=== PATIENT | female | born 2000 | race Caucasian/White ===

== ENCOUNTER → 2020-12-14 | Outpatient (CLI) | payer OTHER ==
[~2020-12-14] MED LIST: AMOCLA500 PO; CEPH250A PO; CEPH500 PO; TRIA80TC TOP; Verotin-Gr Cap1 EACH PO; Zithromax250 MG PO; Zofran4 MG PO
== END | disposition home or self-care (01) ==
LOC: LAB 10:23 → LAB SHORT 10:23
DX: O09.92 Supervision of high risk pregnancy, unspecified, second trimester (principal)
CPT/HCPCS: 87081; 87150

== ENCOUNTER → 2020-12-31 | Outpatient (CLI) | payer OTHER ==
[2021-01-01 09:32] LABS: Candida species (DNA Probe) Negative (NEGATIVE); G. vaginalis (DNA Probe) Positive (NEGATIVE); T. vaginalis (DNA Probe) Negative (NEGATIVE)
== END ==
LOC: LAB SHORT 17:24 → LAB 17:24
PROVIDERS: Advanced Practice Midwife
DX: N76.0 Acute vaginitis (principal)
CPT/HCPCS: 87480; 87510; 87660

== ENCOUNTER 2021-01-12 05:59 | Inpatient (IN) | payer OTHER ==
[~2021-01-12] VITALS: Ht 160 cm; Wt 62.7 kg
[2021-01-12 07:17] LABS: SARS-Cov-2 (COVID-19) PCR, MMC NEGATIVE (NEGATIVE)
[2021-01-12 08:13] LABS: BASOPHILS PERCENT AUTO 1 % (0-2); EOSINOPHILS ABSOLUTE AUTO 0.14 K/mm3 (0.00-0.68); EOSINOPHILS PERCENT AUTO 1 % (0-6); Hematocrit 32.9 % (33.0-51.0); Hemoglobin 11.1 g/dL (11.5-16.0); IMMATURE GRAN PERCENT AUTO 3 % (0-1); LYMPHOCYTES ABSOLUTE AUTO 2.93 K/mm3 (0.84-5.20); LYMPHOCYTES PERCENT AUTO 20 % (21-46); MONOCYTES ABSOLUTE AUTO 1.04 K/mm3 (0.16-1.47); MONOCYTES PERCENT AUTO 7 % (4-13); Mean Corpuscular HGB 30.2 pg (26.0-34.0); Mean Corpuscular HGB Conc 33.7 g/dL (31.5-36.5); Mean Corpuscular Volume 90 fL (80-100); Mean Platelet Volume 10.4 fL (9.1-12.4); NEUTROPHILS ABSOLUTE AUTO 10.09 K/mm3 (1.96-9.15); NEUTROPHILS PERCENT AUTO 69 % (41-73); Platelet Count 268 K/mm3 (150-400); RDW Coefficient Variation 12.8 % (11.7-14.2); RDW Standard Deviation 41.8 fL (35.1-46.3); Red Blood Cell Count 3.67 M/mm3 (3.80-5.20)
--- NOTE | 2021-01-12 09:18 | NUR ---
MULTIPLE IV ATTEMPTS WITH 18G IV, UNABLE TO THREAD R/T PATIENTS SEVERE NEEDLE PHOBIA, 20 G IV WAS USED ON 4TH POKE WITH SUCCESS.
--- NOTE | 2021-01-13 02:24 | NUR ---
0000-THIS COMPUTATIONAL SCIENCES PROFESSOR ENTERED PT ROOM TO FIND PT SLEEPING IN BED WITH NB. MOTHER EDUCATED ABOUT SAFE SLEEPING PRACTICES, THAT NB MAY NOT SLEEP IN BED WITH MOTHER AND NEEDS TO BE PLACED ON HER BACK TO SLEEP IN THE CRIB. MOTHER'S RESPONSE TO EDUCATION WAS "WELL THEN I GUESS I WON'T SLEEP UNTIL I GO HOME THEN."
--- NOTE | 2021-01-13 06:10 | NUR ---
TOOK OVER CARE OF PT DURING SHIFT. FIRST TIME ENTERING THE ROOM PT WAS SITTING UP IN BED WITH BABY LAYING NEXT TO HER IN BED. LET PT KNONW OF NO COSLEEPING POLICY IN HOSPITAL. PT STATED SHE WAS NOT GOING TO BE SLEEPING TONIGHT. LATER IN SHIFT WHEN DOING VITALS PT WAS LYING NEXT TO BABY IN BED, REMINDER HER OF POLICY, OFFERED TO TAKE BABY TO NURSE STATION OR THE IMPORTANCE OF HER AND FOB TRAIDING OFF HOLDING BABY SO THER OTHER COULD SLEEP. AT 6:00AM CHECKED ON PT AND SHE WAS ALSEEP IN BED WITH BABY WITH COVERS ON. WOKE PT UP AND REMINDER HER OF POLICY. PT REMOVED COVERS AND STATED THAT SHE WOULD NOT SLEEP IF SHE WAS COLD AND SHE WOULD BE COLD WITHOUT COVERS. OFFERED TO TAKE BABY TO NURSES STATION AND SHE DECLINED. PT STATED FOB WENT HOME TO GET SOME SLEEP HE WORKS [employer].
--- NOTE | 2021-01-13 16:15 | NUR ---
PT D/C HOME WITH NB, D/C INSTRUCTIONS SIGNED AND PT RETURNING MONDAY FOR PPFU.
== END 2021-01-13 16:00 | disposition home or self-care (01) | DRG 806 ==
LOC: OBS 05:59 → BC 06:03 → OBS 06:04 → BC 06:05
PROVIDERS: ADMIT Advanced Practice Midwife
PROC: 10E0XZZ Delivery of Products of Conception, External Approach (ICD-10-PCS; principal; 2021-01-12)
PROC: 10907ZC Drainage of Amniotic Fluid, Therapeutic from Products of Conception, Via Natural or Artificial Opening (ICD-10-PCS; 2021-01-12)
DX: O99.42 Diseases of the circulatory system complicating childbirth (principal); O99.324 Drug use complicating childbirth; Z37.0 Single live birth; F12.90 Cannabis use, unspecified, uncomplicated; Z20.822 Contact with and (suspected) exposure to COVID-19; Z3A.39 39 weeks gestation of pregnancy; I34.0 Nonrheumatic mitral (valve) insufficiency; O43.123 Velamentous insertion of umbilical cord, third trimester; O99.334 Smoking (tobacco) complicating childbirth; F17.200 Nicotine dependence, unspecified, uncomplicated; M41.9 Scoliosis, unspecified; O99.891 Other specified diseases and conditions complicating pregnancy
CPT/HCPCS: 36415; 85025; 86850; 86900; 86901; A9270; J1885; J2590; J3010; J7030; J7120; U0004

== ENCOUNTER → 2021-08-16 | Outpatient (CLI) | payer OTHER ==
[2021-08-17 10:25] LABS: Candida species (DNA Probe) Negative (NEGATIVE); G. vaginalis (DNA Probe) Positive (NEGATIVE); T. vaginalis (DNA Probe) Negative (NEGATIVE)
== END | disposition home or self-care (01) ==
LOC: LAB SHORT 16:09 → LAB 16:09
PROVIDERS: Advanced Practice Midwife
DX: N76.0 Acute vaginitis (principal)
CPT/HCPCS: 87480; 87510; 87660

== ENCOUNTER → 2022-10-27 | Outpatient (CLI) | payer OTHER | END | disposition home or self-care (01) | LOC: LAB 14:04 → LAB SHORT 14:04 | PROVIDERS: Advanced Practice Midwife | DX: Z01.419 Encounter for gynecological examination (general) (routine) without abnormal findings (principal) | CPT/HCPCS: G0145 ==